=== PATIENT | male | born 1965 | race Hispanic/Latino ===

== ENCOUNTER 2024-03-14 16:37 | Observation (INO) | payer SELFPAY ==
[2024-03-14] MEDS ORDERED: FAMOTIDINE 20 MG/2 ML VIAL IV ONE (17:28)
[2024-03-14] MEDS ORDERED: ASPIRIN 81 MG CHEWABLE TABLET ONE (17:28)
[2024-03-14] MEDS ORDERED: NA CHLORIDE 0.9% 500 ML ONE (17:28)
--- NOTE | 2024-03-14 17:51 | RAD REPORT ---
EXAM DESCRIPTION: RAD - Chest Single View - 03/14/2024 5:41 pm CLINICAL HISTORY: CHEST PAIN COMPARISON: No comparisons FINDINGS: Lines: None. Lungs: No evidence of edema or pneumonia. Pleural: No significant pleural effusions or pneumothorax. Cardiac: The heart size is within normal limits. Mediastinum: Within normal limits. Bones: No acute fractures. Other: None IMPRESSION: No acute cardiopulmonary disease.
[2024-03-14 18:02] LABS: PT Prothrombin Time 11.1 SECONDS (9.4-12.5); Protime INR 1.01
[2024-03-14 18:06] LABS: Absolute Eosinophils 0.1 K/uL (0-0.5); Absolute Lymphocytes (CBC) 1.7 K/uL (0.7-4.9); Absolute Monocytes 0.6 K/uL (0.1-1.3); Absolute Neutrophil 5.4 K/uL (1.8-8.0); Basophils % 0.4 % (0-1.3); Eosinophils % 1.1 % (0-4.4); Hematocrit 38.5 % (39.6-49.0); Hemoglobin 12.8 g/dL (13.6-17.9); Lymphocytes % 21.8 % (15.3-44.8); MCH 29.6 pg (27.0-35.0); MCHC 33.2 g/dL (32.0-36.0); MCV 89.3 fL (80-100); MPV 8.4 fL (7.6-11.3); Monocytes % 7.5 % (3.3-12.3); Neutrophils % 69.2 % (41.7-73.7); Platelets 259 thou/uL (152-406); RBC Red Blood Cell Count 4.31 M/uL (4.33-5.43)
--- NOTE | 2024-03-14 18:15 | EDPHYS ---
Physician Documentation [facility] Name: Antonio Valdes Age: 58 yrs Sex: Male : 1965 Arrival Date: 03/14/2024 Time: 16:37 Bed 13 Private MD: ED Physician Shaka Montejo HPI: 03/14 18:10 This 58 yrs old Male presents to ER via Ambulatory with complaints of Chest johnson Pain. 18:10 The patient or guardian reports chest pain that is located primarily in the anterior johnson chest wall, left. Onset: yesterday. The pain does not radiate. Associated signs and symptoms: Pertinent positives: shortness of breath. The chest pain is described as a pressure. Duration: The patient or guardian reports multiple episodes, that wax and wane. Modifying factors: The symptoms are alleviated by nothing. the symptoms are aggravated by activity, exertion, movement. Severity of pain: At its worst the pain was mild in the emergency department the pain is unchanged. The patient has experienced similar episodes in the past, a few times. Historical: - Allergies: 17:18 No Known Allergies; tl4 - Immunization history:: Adult Immunizations unknown. - Infectious Disease History:: Denies. - Social history:: Smoking status: Patient denies any tobacco usage or history of. ROS: 18:11 Constitutional: Negative for fever, chills, and weight loss, Eyes: Negative for injury, johnson pain, redness, and discharge, ENT: Negative for injury, pain, and discharge, Neck: Negative for injury, pain, and swelling, Respiratory: Negative for shortness of breath, cough, wheezing, and pleuritic chest pain, Abdomen/GI: Negative for abdominal pain, nausea, vomiting, diarrhea, and constipation, Back: Negative for injury and pain, : Negative for injury, bleeding, discharge, and swelling, MS/Extremity: Negative for injury and deformity, Skin: Negative for injury, rash, and discoloration, Neuro: Negative for headache, weakness, numbness, tingling, and seizure, Psych: Negative for depression, anxiety, suicide ideation, homicidal ideation, and hallucinations, Allergy/Immunology: Negative for hives, rash, and allergies, Endocrine: Negative for neck swelling, polydipsia, polyuria, polyphagia, and marked weight changes, Hematologic/Lymphatic: Negative for swollen nodes, abnormal bleeding, and unusual bruising, 18:11 Cardiovascular: Positive for chest pain, of the left clavicle and anterior aspect of left upper chest, Exam: 18:11 Constitutional: This is a well developed, well nourished patient who is awake, alert, johnson and in no acute distress. Head/Face: Normocephalic, atraumatic. Eyes: Pupils equal round and reactive to light, extra-ocular motions intact. Lids and lashes normal. Conjunctiva and sclera are non-icteric and not injected. Cornea within normal limits. Periorbital areas with no swelling, redness, or edema. ENT: Nares patent. No nasal discharge, no septal abnormalities noted. Tympanic membranes are normal and external auditory canals are clear. Oropharynx with no redness, swelling, or masses, exudates, or evidence of obstruction, uvula midline. Mucous membranes moist. Neck: Trachea midline, no thyromegaly or masses palpated, and no cervical lymphadenopathy. Supple, full range of motion without nuchal rigidity, or vertebral point tenderness. No Meningismus. Chest/axilla: Normal chest wall appearance and motion. Nontender with no deformity. No lesions are appreciated. Cardiovascular: Regular rate and rhythm with a normal S1 and S2. No gallops, murmurs, or rubs. Normal PMI, no JVD. No pulse deficits. Respiratory: Lungs have equal breath sounds bilaterally, clear to auscultation and percussion. No rales, rhonchi or wheezes noted. No increased work of breathing, no retractions or nasal flaring. Abdomen/GI: Soft, non-tender, with normal bowel sounds. No distension or tympany. No guarding or rebound. No evidence of tenderness throughout. Back: No spinal tenderness. No costovertebral tenderness. Full range of motion. Male : Normal genitalia with no discharge or lesions. Skin: Warm, dry with normal turgor. Normal color with no rashes, no lesions, and no evidence of cellulitis. MS/ Extremity: Pulses equal, no cyanosis. Neurovascular intact. Full, normal range of motion. Neuro: Awake and alert, GCS 15, oriented to person, place, time, and situation. Cranial nerves II-XII grossly intact. Motor strength 5/5 in all extremities. Sensory grossly intact. Cerebellar exam normal. Normal gait. Psych: Awake, alert, with orientation to person, place and time. Behavior, mood, and affect are within normal limits. 18:19 ECG was reviewed by the Attending Physician. [facility] Vital Signs: 17:16 BP 143 / 88; Pulse 63; Resp 18; Temp 97.9(TE); Pulse Ox 99% on R/A; Pain 8/10; tl4 18:04 BP 143 / 87; Pulse 62; Resp 20; Pulse Ox 100% on R/A; nj1 18:24 Weight 79.38 kg; Height 5 ft. 6 in. ; nj1 19:02 BP 142 / 80; Pulse 59; Resp 15; Pulse Ox 100% on R/A; Pain 3/10; nj1 21:16 BP 118 / 84; Pulse 58; Resp 14; Pulse Ox 98% on R/A; nj1 22:00 BP 123 / 68; Pulse 51; Resp 15; Pulse Ox 99% ; jj7 22:30 BP 126 / 61; Pulse 50; Resp 16; Temp 98.7; Pulse Ox 99% ; jj7 18:24 Body Mass Index 28.25 (79.38 kg, 167.64 cm) nj1 17:16 Pain Scale: Adult tl4 19:02 Pain Scale: Adult nj1 MDM: 16:53 Patient medically screened. johnson 18:12 Differential diagnosis: abnormal EKG, acute myocardial infarction, acute pericarditis, johnson anxiety, chest wall pain, costochondritis, hiatal hernia, myocarditis, pancreatitis, peptic ulcer disease, pericarditis, pleurisy, pulmonary embolus, stable angina, thoracic aortic disection, unstable angina. Differential Diagnosis flu. HEART Score: History: Slightly Suspicious (0), ECG: Non specific repolarization disturbance / LBTB / PM (1), Age: > 45 and < 65 years (1), Risk Factors: 1 or 2 risk factors (1), [Active Smoker] [+ Family HX] Troponin: < or = 1 x Normal Limit (0). The patient was given aspirin in the Emergency Department. Data reviewed: vital signs, nurses notes, lab test result(s), EKG, radiologic studies, plain films. Consideration of Admission/Observation Patient was admitted/placed on observation. Escalation of care including admission/observation considered. I considered the following discharge prescriptions or medication management in the emergency department Medications were administered in the Emergency Department. See MAR. Independent interpretation of the following test(s) in the Emergency Department EKG: See my EKG interpretation above. Test considered but Not performed: CT: ct chest ro pe. Historians other than the Patient: pt well informed , meena explained well. Care significantly affected by the following chronic conditions: smoker. Counseling: I had a detailed discussion with the patient and/or guardian regarding the historical points, exam findings, and any diagnostic results supporting the discharge/admit diagnosis, the presence of at least one elevated blood pressure reading (>120/80) during this emergency department visit, lab results, radiology results, the need for further work-up and treatment in the hospital. 03/14 16:54 Order name: Basic Metabolic Panel; Complete Time: 18:33 [facility] 03/14 16:54 Order name: CBC with Diff; Complete Time: 18:09 [facility] 03/14 16:54 Order name: LFT's; Complete Time: 18:33 [facility] 03/14 16:54 Order name: Magnesium; Complete Time: 18:33 [facility] 03/14 16:54 Order name: NT PRO-BNP; Complete Time: 18:33 [facility] 03/14 16:54 Order name: PT-INR; Complete Time: 18:09 [facility] 03/14 16:54 Order name: Troponin HS; Complete Time: 18:33 [facility] 03/14 16:54 Order name: Lipase; Complete Time: 18:33 [facility] 03/14 16:54 Order name: Urinalysis w/ reflexes; Complete Time: 18:20 [facility] 03/14 18:09 Order name: Lipid Profile [facility] 03/14 18:47 Order name: Urinalysis w/ reflexes [facility] 03/14 18:47 Order name: CBC with Automated Diff [facility] 03/14 18:47 Order name: CBC with Automated Diff [facility] 03/14 18:47 Order name: Comprehensive Metabolic Panel [facility] 03/14 18:47 Order name: Comprehensive Metabolic Panel [facility] 03/14 18:47 Order name: Troponin High Sensitivity [facility] 03/14 18:47 Order name: Troponin High Sensitivity [facility] 03/14 18:47 Order name: Troponin High Sensitivity [facility] 03/14 18:47 Order name: Troponin High Sensitivity [facility] 03/14 16:54 Order name: XRAY Chest (1 view); Complete Time: 18:09 [facility] 03/14 16:54 Order name: EKG; Complete Time: 16:55 [facility] 03/14 16:54 Order name: Cardiac monitoring; Complete Time: 17:16 [facility] 03/14 16:54 Order name: EKG - Nurse/Tech; Complete Time: 17:16 [facility] 03/14 16:54 Order name: IV Saline Lock; Complete Time: 17:31 [facility] 03/14 16:54 Order name: Labs collected and sent; Complete Time: 17:31 [facility] 03/14 16:54 Order name: O2 Per Protocol; Complete Time: 17:16 [facility] 03/14 16:54 Order name: O2 Sat Monitoring; Complete Time: 17:16 [facility] 03/14 17:49 Order name: Labs - recollect needed: recollect green top; Complete Time: 18:03 03/14 18:35 Order name: PO challenge: juice; Complete Time: 18:59 [facility] EC:19 Rate is 59 beats/min. Rhythm is regular. QRS [place] is Normal. [place] interval is normal. QRS johnson interval is normal. QT interval is normal. No Q waves. T waves are Normal. No ST changes noted. Clinical impression: Sinus bradycardia and No evidence of ischemia. Interpreted by me. Reviewed by me. Administered Medications: 17:30 Drug: Aspirin PO Chewable Tablet 162 mg PO once Route: PO; nj1 21:30 Follow up: Response: No adverse reaction nj1 17:32 Drug: NS 0.9% IV 500 ml IV at bolus once Route: IV; Rate: bolus; Site: right banner antecubital; 18:50 Follow up: IV Status: Completed infusion; IV Intake: 500ml nj1 17:32 Drug: Famotidine IVP 20 mg IVP once; dilute with 10 mL 0.9% NaCl; give over 2 minutes nj1 Route: IVP; Site: right antecubital; 21:30 Follow up: Response: No adverse reaction nj1 18:34 Not Given (Duplicate Order): ns 0.9% 1000 ml IV at 125 ml/hr continuous [facility] 18:50 Drug: Lisinopril PO 20 mg PO once Route: PO; nj1 21:30 Follow up: Response: No adverse reaction nj1 18:50 Drug: Atorvastatin PO 20 mg PO once Route: PO; nj1 21:30 Follow up: Response: No adverse reaction nj1 18:50 Drug: Ondansetron IVP 4 mg IVP once; over 2 minutes Route: IVP; Site: right antecubital;nj1 21:28 Follow up: Response: No adverse reaction nj1 18:50 Drug: Potassium PO Effervescent Tablet 50 mEq PO once; dissolve in 4 ounces of water or nj1 juice Route: PO; 21:27 Follow up: Response: No adverse reaction nj1 18:52 Drug: morphine IVP or IV 2 mg IVP once over 4 mins Route: IVP; Infused Over: 4 mins; nj1 Site: right antecubital; 19:30 Follow up: Response: No adverse reaction; Pain is decreased nj1 18:55 Drug: Enoxaparin Sub-Q 1 mg/kg Sub-Q once Route: Sub-Q; Site: left upper abdomen; nj1 21:29 Follow up: Response: No adverse reaction nj1 18:55 Drug: NS 0.9% with KCl IV 20 mEq/L 1000 ml IV at 125 ml/hr continuous Route: IV; Rate: nj1 125 ml/hr; Site: right antecubital; 21:28 Not Given (Duplicate Order): morphineor iv 2 mg IVP once over 4 mins nj1 Disposition Summary: 03/14/24 18:15 Hospitalization Ordered Notes: Hospitalization Status: Observation johnson Provider: Rene Lee cha Location: Telemetry/MedSurg (observation) johnson Condition: Fair johnson Problem: new johnson Symptoms: have improved johnson Bed/Room Type: Standard johnson Room Assignment: 221(03/14/24 21:05) vk Diagnosis - Chest pain, unspecified johnson - Dyspnea johnson - Essential (primary) hypertension johnson - Tobacco abuse counseling johnson - Tobacco use johnson - Hypokalemia johnson Forms: - Medication Reconciliation Form johnson - SBAR form johnson - Leadership Thank You Letter johnson Signatures: Dispatcher [employer] EDMS Jailene Arana Corey, MD MD cha Jaco, Norma RN RN nj1 Gutierrez Arreola RN RN tl4 Renea Garcia Corrections: (The following items were deleted from the chart) 16:55 16:55 BASIC METABOLIC PANEL+C.LAB.BRZ ordered. EDMS EDMS 16:55 16:55 CBC+H.LAB.BRZ ordered. EDMS EDMS 16:55 16:55 HEPATIC FUNCTION+C.LAB.BRZ ordered. EDMS EDMS 16:55 16:55 MAGNESIUM+C.LAB.BRZ ordered. EDMS EDMS 16:55 16:55 PROBNP+C.LAB.BRZ ordered. EDMS EDMS 16:55 16:55 PROTIME (+INR)+COAG.LAB.BRZ ordered. EDMS EDMS 16:55 16:55 Troponin High Sensitivity+C.LAB.BRZ ordered. EDMS EDMS 16:55 16:55 LIPASE+C.LAB.BRZ ordered. EDMS EDMS 16:55 16:55 Urinalysis+U.LAB.BRZ ordered. EDMS EDMS 18:10 18:10 LIPID PROFILE+C.LAB.BRZ ordered. EDMS EDMS 21:05 18:15 johnson vk
--- NOTE | 2024-03-14 18:15 | ER ---
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 Pt states pain decreases with rest. Pt denies SOB, N/V, diaphoresis. Pt denies any history of similar episodes. Coronavirus screen: At this time, the client does not indicate any symptoms associated with coronavirus-19. Ebola Screen: No symptoms or risks identified at this time. Initial Sepsis Screen: Does the patient meet any 2 criteria? No. Patient's initial sepsis screen is negative. Does the patient have a suspected source of infection? No. Patient's initial sepsis screen is negative. Risk Assessment: Do you want to hurt yourself or someone else? Patient reports no desire to harm self or others. Onset of symptoms was March 13, 2024. 17:16 Method Of Arrival: Ambulatory tl4 17:16 Acuity: ABRAHAM 2 tl4 Triage Assessment: 17:19 General: Appears in no apparent distress. Behavior is cooperative. Pain: Complains of tl4 pain in chest. EENT: No signs and/or symptoms were reported regarding the EENT system. Neuro: Level of Consciousness is awake, alert, obeys commands, Oriented to person, place, time, situation, Moves all extremities. Full function Gait is steady, Speech is normal. Cardiovascular: Reports chest pain, fatigue, Denies diaphoresis, nausea, shortness of breath, Capillary refill < 3 seconds Patient's skin is warm and dry. Respiratory: Airway is patent Respiratory effort is even, unlabored, Respiratory pattern is regular, symmetrical. GI: No signs and/or symptoms were reported involving the gastrointestinal system. : No signs and/or symptoms were reported regarding the genitourinary system. Derm: No signs and/or symptoms reported regarding the dermatologic system. Musculoskeletal: No signs and/or symptoms reported regarding the musculoskeletal system. Historical: - Allergies: 17:18 No Known Allergies; tl4 - Immunization history:: Adult Immunizations unknown. - Infectious Disease History:: Denies. - Social history:: Smoking status: Patient denies any tobacco usage or history of. Screenin:51 [facility] ED Fall Risk Assessment (Adult) History of falling in the last 3 months, nj1 including since admission No falls in past 3 months (0 pts) Confusion or Disorientation No (0 pts) Intoxicated or Sedated No (0 pts) Impaired Gait No (0 pts) Mobility Assist Device Used No (0 pt) Altered Elimination No (0 pt) Score/Fall Risk Level 0 - 2 = Low Risk Oriented to surroundings, Maintained a safe environment, Hourly rounding (assess needs \T\ fall precautionary measures) done. Abuse screen: Denies threats or abuse. Denies injuries from another. Nutritional screening: No deficits noted. Tuberculosis screening: No symptoms or risk factors identified. Assessment: 17:25 General: Appears in no apparent distress. comfortable, Behavior is calm, cooperative, nj1 appropriate for age. 17:25 Pain: Complains of pain in chest Pain does not radiate. Pain currently is 3 out of 10 nj1 on a pain scale. at worst was 5 out of 10 on a pain scale. Pain began 1 day ago. Neuro: Level of Consciousness is awake, alert, obeys commands, Oriented to person, place, time, situation. Cardiovascular: Patient's skin is warm and dry. Respiratory: Airway is patent Respiratory effort is even, unlabored. 19:02 Reassessment: Patient appears in no apparent distress at this time. Patient and/or nj1 family updated on plan of care and expected duration. Pain level reassessed. Patient is alert, oriented x 3, equal unlabored respirations, skin warm/dry/pink. 21:17 Reassessment: Patient appears in no apparent distress at this time. Patient and/or nj1 family updated on plan of care and expected duration. Pain level reassessed. Patient is alert, oriented x 3, equal unlabored respirations, skin warm/dry/pink. 22:10 Reassessment: RECEIVED PT REPORT FROM NEENA BLACKBURN. STATES PT IS ADMITTED AND WILL BE GOING jj7 TO THE UNIT IN 5 MINUTES. INFORMED THEY ARE HAVING ROOMING ISSUES AND ONCE ROOM ISSUE IS RESOLVED PT WILL GO TO THE UNIT. General: Appears in no apparent distress. comfortable, Behavior is calm, cooperative, appropriate for age. Vital Signs: 17:16 BP 143 / 88; Pulse 63; Resp 18; Temp 97.9(TE); Pulse Ox 99% on R/A; Pain 8/10; tl4 18:04 BP 143 / 87; Pulse 62; Resp 20; Pulse Ox 100% on R/A; nj1 18:24 Weight 79.38 kg; Height 5 ft. 6 in. ; nj1 19:02 BP 142 / 80; Pulse 59; Resp 15; Pulse Ox 100% on R/A; Pain 3/10; nj1 21:16 BP 118 / 84; Pulse 58; Resp 14; Pulse Ox 98% on R/A; nj1 22:00 BP 123 / 68; Pulse 51; Resp 15; Pulse Ox 99% ; jj7 22:30 BP 126 / 61; Pulse 50; Resp 16; Temp 98.7; Pulse Ox 99% ; jj7 18:24 Body Mass Index 28.25 (79.38 kg, 167.64 cm) nj1 17:16 Pain Scale: Adult tl4 19:02 Pain Scale: Adult ia1 ED Course: 16:50 Patient arrived in ED. mg5 16:53 Shaka Montejo MD is Attending Physician. johnson 17:11 Neena Phillips, RN is Primary Nurse. nj1 17:16 EKG done, by ED staff, reviewed by Shaka Montejo MD. tl4 17:18 Triage completed. tl4 17:20 Arm band placed on left wrist. tl4 17:25 Inserted saline lock: 20 gauge in right antecubital area, using aseptic technique. kj2 Blood collected. 17:43 XRAY Chest (1 view) In Process Unspecified. EDMS 17:51 Patient has correct armband on for positive identification. Bed in low position. Call nj1 light in reach. Provided Education on: call light, fall precautions. Client placed on continuous cardiac and pulse oximetry monitoring. NIBP monitoring applied. special education resource room teacher on. 18:03 Urinalysis w/ reflexes Sent. tl4 18:03 Basic Metabolic Panel Sent. tl4 18:03 LFT's Sent. tl4 18:03 Magnesium Sent. tl4 18:03 NT PRO-BNP Sent. tl4 18:03 Troponin HS Sent. tl4 18:03 Lab(s) recollected, by me, sent to lab. Urine collected: clean catch specimen, philippe tl4 colored. 18:14 Rene Lee MD is Hospitalizing Provider. [facility] 21:31 No provider procedures requiring assistance completed. Patient admitted, IV remains in ia1 place. Administered Medications: 17:30 Drug: Aspirin PO Chewable Tablet 162 mg PO once Route: PO; nj1 21:30 Follow up: Response: No adverse reaction nj1 17:32 Drug: NS 0.9% IV 500 ml IV at bolus once Route: IV; Rate: bolus; Site: right nj1 antecubital; 18:50 Follow up: IV Status: Completed infusion; IV Intake: 500ml nj1 17:32 Drug: Famotidine IVP 20 mg IVP once; dilute with 10 mL 0.9% NaCl; give over 2 minutes nj1 Route: IVP; Site: right antecubital; 21:30 Follow up: Response: No adverse reaction nj1 18:34 Not Given (Duplicate Order): ns 0.9% 1000 ml IV at 125 ml/hr continuous [facility] 18:50 Drug: Lisinopril PO 20 mg PO once Route: PO; nj1 21:30 Follow up: Response: No adverse reaction nj1 18:50 Drug: Atorvastatin PO 20 mg PO once Route: PO; nj1 21:30 Follow up: Response: No adverse reaction nj1 18:50 Drug: Ondansetron IVP 4 mg IVP once; over 2 minutes Route: IVP; Site: right antecubital;nj1 21:28 Follow up: Response: No adverse reaction nj1 18:50 Drug: Potassium PO Effervescent Tablet 50 mEq PO once; dissolve in 4 ounces of water or nj1 juice Route: PO; 21:27 Follow up: Response: No adverse reaction nj1 18:52 Drug: morphine IVP or IV 2 mg IVP once over 4 mins Route: IVP; Infused Over: 4 mins; [facility] Site: right antecubital; 19:30 Follow up: Response: No adverse reaction; Pain is decreased nj1 18:55 Drug: Enoxaparin Sub-Q 1 mg/kg Sub-Q once Route: Sub-Q; Site: left upper abdomen; nj1 21:29 Follow up: Response: No adverse reaction nj1 18:55 Drug: NS 0.9% with KCl IV 20 mEq/L 1000 ml IV at 125 ml/hr continuous Route: IV; Rate: nj1 125 ml/hr; Site: right antecubital; 21:28 Not Given (Duplicate Order): morphineor iv 2 mg IVP once over 4 mins nj1 Medication: 21:32 VIS not applicable for this client. nj1 Intake: 18:50 IV: 500ml; Total: 500ml. nj1 Outcome: 18:15 Decision to Hospitalize by Provider. johnson 21:31 Admitted to Med/surg accompanied by tech, via wheelchair, room 221, nj 21:31 Condition: stable 21:31 Instructed on the need for admit, 22:45 Patient left the ED. jj7 Signatures: Dispatcher [employer] EDMS Shaka Montejo MD MD cha Johnson, Juwairiyah, RN RN jj7 Neena Phillips, RN RN nj1 Suzi Maurice mg5 Gutierrez Arreola RN RN tl4 Franca Henry, RN RN kj2
[2024-03-14 18:18] LABS: Sqamous Epithelial None Seen /HPF (None Seen); Urine Bacteria <20 /HPF (<20); Urine Bilirubin NEGATIVE (Negative); Urine Blood Trace (Negative); Urine Clarity Clear (Clear); Urine Color Yellow (Yellow); Urine Culture Reflex Order NOT NEEDED; Urine Glucose NEGATIVE (Negative); Urine Ketones 1+ (Negative); Urine Microscopic Reflex YN ORDER UMIC; Urine Mucus Slight /HPF (None Seen); Urine Nitrite NEGATIVE (Negative); Urine Protein TRACE (Negative); Urine Urobilinogen Normal (Normal); Urine WBC <5 /HPF (<5); Urine pH 5.5 (5.0-7.0)
[2024-03-14 18:30] LABS: Albumin 2.7 g/dL (3.4-5.0); Albumin/Globulin Ratio 1.1 (1.1-1.8); Anion Gap 6.9 mEq/L (5.0-15.0); Bilirubin Direct 0.2 mg/dL (0-0.2); Bilirubin Indirect, Calculated 0.5 mg/dL (0.2-0.8); Bilirubin Total 0.7 mg/dL (0.2-1.0); Globulin 2.5 g/dL (2.3-3.5); Magnesium 1.8 mg/dL (1.6-2.4); Potassium 2.9 mEq/L (3.5-5.1); Protein, Total 5.2 g/dL (6.4-8.2); Troponin High Sensitivity 4.8 pg/mL (<58.9)
[2024-03-14] MEDS ORDERED: lisinopriL 20 MG TAB ONE (18:40)
[2024-03-14] MEDS ORDERED: ATORVASTATIN 20 MG TAB ONE (18:40)
[2024-03-14] MEDS ORDERED: ENOXAPARIN 80 MG/0.8 ML SQ ONE (18:40)
[2024-03-14] MEDS ORDERED: ONDANSETRON 4 MG/2 ML VIAL ONE (18:40)
[2024-03-14] MEDS ORDERED: POTASSIUM 25 MEQ EFFERV TAB ONE (18:41)
[2024-03-14] MEDS ORDERED: MORPHINE 4 MG/ML SYR ONE (18:41)
[2024-03-14] MEDS ORDERED: NS KCL 20MEQ 1,000 ML IV ONE (18:42)
--- NOTE | 2024-03-14 18:42 | P.HP ---
Certification for Inpatient Patient admitted to: Observation With expected LOS: <2 Midnights Practitioner: I am a practitioner with admitting privileges, knowledge of patient current condition, hospital course, and medical plan of care. Services: Services provided to patient in accordance with Admission requirements found in Title 42 Section 412.3 of the Code of Federal Regulations Patient History Date of Service: 03/15/24 Reason for admission: CP History of Present Illness: 58 yrs old Male with no significant past medical history came to ER with chest pain. Located in the anterior chest wall with no radiation associated with mild shortness of breath. Denies any diaphoresis. Said pressure-like feeling. Intermittent, symptoms are aggravated with activity and exertion and movements. Denies any fever or chills No sick contacts Denies any cough. Patient was assessed in the ER and is admitted for further management of chest pain to rule out ACS Allergies No Known Allergies Allergy (Unverified 03/14/24 21:30) Home Medications: NK [No Home Meds] 03/14/24 - Past Medical/Surgical History Past Medical History: Reviewed- Non-Contributory Past Surgical History: Reviewed- Non-Contributory - Family History Family History: Reviewed- Non-Contributory - Social History Smoking Status: Current some day smoker Review of Systems 10-point ROS is otherwise unremarkable Physical Examination - Vital Signs Temperature: 98.2 F Blood Pressure: 138/68 Pulse: 82 Respirations: 18 Pulse Ox (%): 93 - Physical Exam General: Alert, In no apparent distress, Oriented x3 HEENT: Atraumatic, Normocephalic Neck: Supple, 2+ carotid pulse no bruit Respiratory: Clear to auscultation bilaterally, Normal air movement Cardiovascular: Normal pulses, Regular rate/rhythm, No murmurs Capillary refill: <2 Seconds Gastrointestinal: Soft and benign, W/out hepatosplenomegaly Musculoskeletal: No clubbing, No swelling Integumentary: No rashes, No breakdown Neurological: Normal speech, Normal strength at 5/5 x4 extr, Sensation intact, Cranial nerves 3-12 intact, Normal reflexes 2+ Lymphatics: No axilla or inguinal lymphadenopathy - Studies Laboratory Data (last 24 hrs) 03/14/24 03/14/24 03/14/24 18:00 17:25 17:25 WBC 7.90 Hgb 12.8 L Hct 38.5 L Plt Count 259 PT 11.1 INR 1.01 Sodium 144 Potassium 2.9 L BUN 19 H Creatinine 0.86 Glucose 73 L Magnesium 1.8 Total Bilirubin 0.7 AST 15 ALT 22 Alkaline Phosphatase 58 Lipase 25 Assessment and Plan - Problems (Diagnosis) (1) Unstable angina Current Visit: Yes Status: Acute Plan: Unstable angina Will trend cardiac enzymes Will monitor telemetry Started on aspirin and statin EKG did not show any acute changes suggestive of ischemia Will get an echocardiogram Cardiology consult Hypocalcemia Hypokalemia Will replace electrolytes Monitor closely under telemetry Smoking Advise smoking cessation GI/DVT prophylaxis Advanced directive full code Discharge Plan: Home Plan to discharge in: 48 Hours - Advance Directives Does patient have a Living Will: No Does patient have a Durable POA for Healthcare: No - Code Status/Comfort Care Code Status: Full Code Time Spent Managing Pts Care (In Minutes): 48
[2024-03-14] MEDS ORDERED: ONDANSETRON 4 MG/2 ML VIAL IV PRN (18:43)
[2024-03-14] MEDS ORDERED: ACETAMINOPHEN 325 MG TABLET PO PRN (18:43)
[2024-03-14] MEDS: CALCIUM GLUCONATE 1 GM IVPB 1 GM/50 ML BAG IV ONE (23:16)
[2024-03-14] MEDS: POTASSIUM CL SA 10 MEQ TAB PO ONE (23:16)
[2024-03-15 00:26] VITALS: O2SAT 98; BMI 28.3
[2024-03-15 02:29] LABS: Absolute Basophils 0.1 K/uL (0-0.5); Absolute Eosinophils 0.2 K/uL (0-0.5); Absolute Lymphocytes (CBC) 2.2 K/uL (0.7-4.9); Absolute Monocytes 0.5 K/uL (0.1-1.3); Absolute Neutrophil 2.7 K/uL (1.8-8.0); Eosinophils % 3.3 % (0-4.4); Hematocrit 37.1 % (39.6-49.0); Hemoglobin 12.4 g/dL (13.6-17.9); Lymphocytes % 39.9 % (15.3-44.8); MCHC 33.6 g/dL (32.0-36.0); MCV 89.4 fL (80-100); MPV 8.3 fL (7.6-11.3); Monocytes % 8.5 % (3.3-12.3); Neutrophils % 47.3 % (41.7-73.7); Nucleated Red Blood Cells % 0.1 % (0-0); Platelets 218 thou/uL (152-406); RBC Red Blood Cell Count 4.15 M/uL (4.33-5.43); Red Cell Distribution Width 14.4 % (12.1-15.2)
[2024-03-15 02:44] LABS: Anion Gap 3.8 mEq/L (5.0-15.0); Potassium 3.8 mEq/L (3.5-5.1)
[2024-03-15 04:51] LABS: Magnesium 2.3 mg/dL (1.6-2.4)
--- NOTE | 2024-03-15 07:03 | P.PN ---
Date of Service: 03/15/24 Subjective admitted for chest pain, Review of Systems 10-point ROS is otherwise unremarkable Physical Examination - Vital Signs reviewed - Physical Exam General: Alert, In no apparent distress, Oriented x3 HEENT: Atraumatic, Normocephalic Neck: Supple, 2+ carotid pulse no bruit Respiratory: Clear to auscultation bilaterally, Normal air movement Cardiovascular: Normal pulses, Regular rate/rhythm, No murmurs Capillary refill: <2 Seconds Gastrointestinal: Soft and benign, W/out hepatosplenomegaly Musculoskeletal: No clubbing, No swelling Integumentary: No rashes, No breakdown Neurological: Normal speech, Normal strength at 5/5 x4 extr, Sensation intact, Cranial nerves 3-12 intact, Normal reflexes 2+ Lymphatics: No axilla or inguinal lymphadenopathy Assessment and Plan - Problems (Diagnosis) (1) Unstable angina Current Visit: Yes Status: Acute Plan: Unstable angina Will trend cardiac enzymes Will monitor telemetry Started on aspirin and statin EKG did not show any acute changes suggestive of ischemia Will get an echocardiogram Cardiology consult Hypocalcemia Hypokalemia Will replace electrolytes Monitor closely under telemetry Smoking Advise smoking cessation GI/DVT prophylaxis Advanced directive full code Discharge Plan: Home Plan to discharge in: 48 Hours - Advance Directives Does patient have a Living Will: No Does patient have a Durable POA for Healthcare: No - Code Status/Comfort Care Code Status: Full Code Time Spent Managing Pts Care (In Minutes): 48
[2024-03-15] MEDS: POTASSIUM CL SA 10 MEQ TAB PO ONE (08:31)
[2024-03-15] MEDS: ENOXAPARIN 40 MG/0.4 ML SQ SCH (08:35)
[2024-03-15] MEDS ORDERED: REGADENOSON 0.4 MG/5 ML SYR IV ONE (10:34)
--- NOTE | 2024-03-15 10:34 | P.CNS ---
Date of Consult: 03/15/24 Chief Complaint: CP History of Present Illness: Patient with no significant PMH presented with chest pain. left sided that has been going for the last 3 days, no radiation, pressure in nature, not related to exertion, no other cardiac symptoms. 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 moist/pink, EOMI, Sclerae nonicteric Neck: Supple, 2+ carotid pulse no bruit, No LAD, Without JVD or thyroid abnormality Respiratory: Clear to auscultation bilaterally, Normal air movement Cardiovascular: Regular rate/rhythm, Normal S1 S2 Gastrointestinal: Normal bowel sounds, No tenderness Musculoskeletal: No tenderness Integumentary: No rashes Neurological: Normal gait, Normal speech, Normal tone, Normal affect Lymphatics: No axilla or inguinal lymphadenopathy Laboratory Data (last 24 hrs) 03/14/24 03/14/24 03/14/24 18:00 18:00 17:25 WBC Hgb Hct Plt Count PT 11.1 INR 1.01 Sodium 144 Potassium 2.9 L BUN 19 H Creatinine 0.86 Glucose 73 L Magnesium 1.8 Total Bilirubin 0.7 AST 15 ALT 22 Alkaline Phosphatase 58 Triglycerides 73 Cholesterol 100 HDL Cholesterol 35 L Cholesterol/HDL Ratio 2.86 Lipase 25 03/14/24 17:25 WBC 7.90 Hgb 12.8 L Hct 38.5 L Plt Count 259 PT INR Sodium Potassium BUN Creatinine Glucose Magnesium Total Bilirubin AST ALT Alkaline Phosphatase Triglycerides Cholesterol HDL Cholesterol Cholesterol/HDL Ratio Lipase - Problems (1) Unstable angina Current Visit: Yes Status: Acute Plan: Plan is for nuclear stress test. get echo. continue ASA 81 mg daily (2) Bradycardia Current Visit: Yes Status: Acute Plan: Sinus carlin on tele, no pauses, continue to monitor. (3) Hypokalemia Current Visit: Yes Status: Acute Plan: correct and monitor.
--- NOTE | 2024-03-15 11:28 | RAD REPORT ---
EXAM DESCRIPTION: NM - Rest Stress Cardiac Imaging - 03/15/2024 11:17 am CLINICAL HISTORY: chest pain Chest pain. COMPARISON: <Comparisons> TECHNIQUE: The patient was administered approximately 10mCi of Tc 99m Sestamibi prior to resting SPE CT imaging of the heart. The patient was then administered approximately 30 mCi of Tc 99m Sestamibi f ollowing exercise or pharmacologic stress. Multiplanar SPECT images were reviewed. FINDINGS: No stress induced ischemic defect is seen to suggest stress induced ischemia. No fixed def ect is seen to suggest hibernating myocardium or scarred myocardium. The end diastolic volume is 126 ml, the end systolic volume is 60 ml, and the ejection fraction is 52 %. IMPRESSION: No stress induced ischemia.
--- NOTE | 2024-03-15 12:26 | ECHO ---
HEIGHT: 5 ft 4 in WEIGHT: 165 lb 0 oz DATE OF STUDY: 03/15/[address]: Mayur Lee DO 2-DIMENSIONAL: YES M.MODE: YES DOPPLER: YES COLOR FLOW: YES TDS: PORTABLE: YES DEFINITY: BUBBLE STUDY: DIAGNOSIS: CHEST PAIN CARDIAC HISTORY: CATHERIZATION: NO SURGERY: NO PROSTHETIC VALVE: NO PACEMAKER: NO MEASUREMENTS (cm) DIASTOLIC (NORMALS) SYSTOLIC (NORMALS) IVSd 0.9 (0.6-1.2) LA Diam 2.7 (1.9-4.0) LVEF 60-65% LVIDd 4.9 (3.5-5.7) LVIDs 3.1 (2.0-3.5) %FS 35% LVPWd 1.0 (0.6-1.2) Ao Diam 31 (2.0-3.7) 2 DIMENSIONAL ASSESSMENT: RIGHT ATRIUM: NORMAL LEFT ATRIUM: NORMAL RIGHT VENTRICLE: NORMAL LEFT VENTRICLE: NORMAL TRICUSPID VALVE: MILD TRICUSPID REGURGITATION MITRAL VALVE: MILD MITRAL REGURGITATION PULMONIC VALVE: NORMAL AORTIC VALVE: MILD AORTIC REGURGITATION PERICARDIAL EFFUSION: NONE AORTIC ROOT: NORMAL LEFT VENTRICULAR WALL MOTION: NORMAL DOPPLER/COLOR FLOW: NORMAL COMMENTS: 1. NORMAL LEFT VENTRICULAR SYSTOLIC FUNCTION, EJECTION FRACTION 60-65%, NORMAL WALL MOTION 2. NORMAL DIASTOLIC FUNCTION 3. MILD MITRAL REGURGITATION, MILD TRICUSPID REGURGITATION, MILD AORTIC REGURGITATION TECHNOLOGIST: DAIJA GAMING
--- NOTE | 2024-03-15 12:39 | TREADPHA ---
DX: CHEST PAIN Date of Study: 03/15/2024 Ht: 5' 4 " Wt: 165 lb 0 oz Consulting Physician: ROCÍO MEDICATIONS: TYLENOL, LOVENOX, ZOFRAN, KLOR-CON HISTORY: 58 YEAR OLD MALE WITH COMPLAINTS OF CHEST PAIN. HISTORY OF HYPERTENSION, HYPERLIPIDEMIA. PATIENT DENIES ALLERGIES. PHYSICIAL EXAMINATION: RESTING B.P.: 119/69 RESTING H.R.: 48 RESTING EKG: SINUS BRADYCARDIA PROTOCOL: PHARMACOLOGIC EXERCISE TIME: 3:30 B.P. AT PEAK STRESS: 112/54 IMPRESSION: LEXISCAN INJECTED. CARDIOLITE INJECTED - SEE NUCLEAR MEDICINE REPORT. PREMATURE VENTRICULAR COMPLEXES OCCASIONALLY. NO SUPRAVENTRICULAR TACHYCARDIA, VENTRICULAR TACHYCARDIA, PREMATURE ATRIAL COMPLEXES NOTED. PATIENT STATES PAIN TO RIGHT CHEST AT A ONE BEFORE THROUGHOUT AND AFTER PROCEDURE.
--- NOTE | 2024-03-15 12:42 | P.DS ---
Admission Date: 03/14/24 Discharge Date: 03/15/24 Disposition: ROUTINE DISCHARGE Discharge Condition: GOOD Reason for Admission: CP Brief History of Present Illness: 58 yrs old Male with no significant past medical history came to ER with chest pain. Located in the anterior chest wall with no radiation associated with mild shortness of breath. Denies any diaphoresis. Said pressure-like feeling. Intermittent, symptoms are aggravated with activity and exertion and movements. Denies any fever or chills, No sick contacts, Denies any cough. - Physical Exam General: Alert, In no apparent distress, Oriented x3 HEENT: Atraumatic, Normocephalic Neck: Supple, 2+ carotid pulse no bruit Respiratory: Clear to auscultation bilaterally, Normal air movement Cardiovascular: Normal pulses, Regular rate/rhythm, No murmurs Capillary refill: <2 Seconds Gastrointestinal: Soft and benign, W/out hepatosplenomegaly Musculoskeletal: No clubbing, No swelling Integumentary: No rashes, No breakdown Neurological: Normal speech, Normal strength at 5/5 x4 extr, Lymphatics: No axilla or inguinal lymphadenopathy Hospital Course: 58 year-old patient presented with chest pain. Was noted to have hypokalemia, atypical chest pain. Condition improved with as needed analgesics, electrolyte replacement, he was evaluated by cardiology, stress test was negative for acute ischemia, echocardiogram completed. Patient tolerating diet, stable for discharge to home with follow-up appointment with primary care physician. Follow-up with cardiology after discharge, Instructions, test results explained to patient in yakut with eyelet riveter prior to discharge. Patient verbalized understanding, all questions were answered. Echocardiogram COMMENTS: 1. NORMAL LEFT VENTRICULAR SYSTOLIC FUNCTION, EJECTION FRACTION 60-65%, NORMAL WALL MOTION 2. NORMAL DIASTOLIC FUNCTION 3. MILD MITRAL REGURGITATION, MILD TRICUSPID REGURGITATION, MILD AORTIC REGURGITATION PROBLEM: Atypical chest pain evaluated by cardiology, stress test no acute ischemia [id number] with cardiology, aspirin 81 mg after discharge Serial cardiac enzymes normal. 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 Brady at [phone] if any questions regarding hospital stay -Please call nursing station at [phone] if any nursing or medication questions -Return to the emergency room if symptoms worsen Diet: ADA, low sodium Activity: Fall precautions Vital Signs/Physical Exam: Temp Pulse Resp BP Pulse Ox 98.0 F 42 L 14 96/57 L 98 03/15/24 08:00 03/15/24 08:00 03/15/24 08:00 03/15/24 08:00 03/15/24 08:00 Laboratory Data at Discharge: WBC 5.60 thou/uL (4.3-10.9) 03/15/24 02:04 Hgb 12.4 g/dL (13.6-17.9) L 03/15/24 02:04 Hct 37.1 % (39.6-49.0) L 03/15/24 02:04 Plt Count 218 thou/uL (152-406) 03/15/24 02:04 PT 11.1 SECONDS (9.4-12.5) 03/14/24 17:25 INR 1.01 03/14/24 17:25 Sodium 140 mEq/L (136-145) 03/15/24 02:04 Potassium 3.8 mEq/L (3.5-5.1) D 03/15/24 02:04 BUN 19 mg/dL (7-18) H 03/15/24 02:04 Creatinine 0.97 mg/dL (0.70-1.30) 03/15/24 02:04 Glucose 114 mg/dL (74-106) H 03/15/24 02:04 Magnesium 2.3 mg/dL (1.6-2.4) 03/15/24 02:04 Total Bilirubin 1.0 mg/dL (0.2-1.0) 03/15/24 02:04 AST 18 U/L (15-37) 03/15/24 02:04 ALT 24 U/L (16-61) 03/15/24 02:04 Alkaline Phosphatase 70 U/L (45-117) D 03/15/24 02:04 Triglycerides 73 mg/dL (<150) 03/14/24 18:00 Cholesterol 100 mg/dL (<200) 03/14/24 18:00 HDL Cholesterol 35 mg/dL (40-60) L 03/14/24 18:00 Cholesterol/HDL Ratio 2.86 03/14/24 18:00 Lipase 25 U/L (13-75) 03/14/24 18:00 Home Medications: Aspirin [Aspirin EC 81 MG] 81 mg PO DAILY 30 Days #30 tab 03/15/24 New Medications: Aspirin [Aspirin EC 81 MG] 81 mg PO DAILY 30 Days #30 tab Physician Discharge Instructions: Primary Care and Medication Assistance [facility] Locations: [place], [facility], [place], [place], [place], [place], [place], [place] Payments: Offers free or low-cost care based on individual circumstances Appointments: [email or web address] call for appointment at any location [address] [address] Check the website for clinic dates [email or web address]://[facility] hospitalRancard Solutions Limited/ [facility] link for financial assistance to see PCP or specialist: https://www.[facility]/billing-insurance/financial-assistance https://www.[employer]/ - (compares pharmacy prices and provides coupons) https://costTwillion/ (discounts for out of pocket cost on routine medications by mail) https://www.needymeds.org/newuser (patient assistance programs, coupons, discount card) [facility] Medication Assistance Program [place]: [place]: [facility] (medication assistance) Apply for Disability/Social Security Income (SSI) online: https://www.ssa.gov/apply or through local social security office Apply for Medicaid for elderly or disabled in [place] online: https://www.hhs.[place].gov/services/health/medicaid-chip/medicaid-chip-programs-s ervices/vynfgupn-fgugdgfe-iyhqwx-disabilities/medicaid-elderly-people-disabiliti es or at a local Medicaid office: Health & Human Service Commission [address] [place] [address]/: [phone]); additional website for [place] Medicaid assistance: https://www.[employer].[facility]/members/medicaid/ skg-jg-wfmeha.html Diet: AHA Activity: Fall precautions Followup: Jono Colindres MD [ACTIVE - CAN ADMIT] - NONE,NONE [Primary Care Provider] - Time spent managing pt's care (in minutes): 50
[2024-03-15 13:02] VITALS: BP 114/64; TEMP 97.6
--- NOTE | 2024-03-15 14:08 | EKG ---
Test Date: 2024-03-14 Test Time: 17:09:55 Biometric Screener: TL MEASUREMENT RESULTS: Intervals: Rate: 59 OH: 170 QRSD: 90 QT: 384 QTc: 380 [place]: P: 38 OH: 170 QRS: 25 T: 12 INTERPRETIVE STATEMENTS: Sinus bradycardia Cannot rule out Anterior infarct, age undetermined Abnormal ECG No previous ECG available for comparison Electronically Signed On 03-15-24 14:06:33 CDT by Frederick Carbajal
== END 2024-03-15 14:41 | disposition home or self-care (01) ==
LOC: ER 16:37 → ERHOLD 18:43 → 2ND 22:14
PROVIDERS: ADMIT Family Medicine; ATTEND Hospitalist
DX: I20.0 Unstable angina (principal); R00.1 Bradycardia, unspecified; I35.1 Nonrheumatic aortic (valve) insufficiency; I34.0 Nonrheumatic mitral (valve) insufficiency; I07.1 Rheumatic tricuspid insufficiency; E83.51 Hypocalcemia; E87.6 Hypokalemia; F17.210 Nicotine dependence, cigarettes, uncomplicated; Z71.6 Tobacco abuse counseling; Z79.82 Long term (current) use of aspirin
CPT/HCPCS: 36415; 71045; 78452; 80048; 80053; 80061; 80076; 81001; 83690; 83735; 83880; 84484; 85025; 85610; 93005; 93017; 93306; 96361; 96372; 96374; 96375; 99285; A9500; G0378; J0612; J1650; J2405; J2785; J3480; J7040

== ENCOUNTER 2024-05-11 14:08 | Emergency (ER) | payer SELFPAY ==
[2024-05-11] MEDS ORDERED: ONDANSETRON 4 MG/2 ML VIAL ONE (15:22)
[2024-05-11] MEDS ORDERED: MORPHINE 4 MG/ML SYR ONE (15:23)
--- NOTE | 2024-05-11 15:27 | RAD REPORT ---
EXAM DESCRIPTION: RAD - Wrist Left 3 View - 05/11/2024 3:18 pm CLINICAL HISTORY: PAIN Pain COMPARISON: No comparisons FINDINGS: Impacted comminuted fracture of the distal radius with moderate displacement. No dislocati on is seen.
--- NOTE | 2024-05-11 15:40 | RAD REPORT ---
EXAM DESCRIPTION: CT - Head Brain Wo Cont - 05/11/2024 3:34 pm CLINICAL HISTORY: CONFUSED Fall, head injury COMPARISON: <Comparisons> TECHNIQUE: All CT scans are performed using dose optimization technique as appropriate and may inclu de automated exposure control or mA/KV adjustment according to patient size. FINDINGS: No intracranial hemorrhage, hydrocephalus or extra-axial fluid collection.No areas of brai n edema or evidence of midline shift. The paranasal sinuses and mastoids are clear. The calvarium is intact. IMPRESSION: No acute intracranial abnormality.
[2024-05-11] MEDS ORDERED: FENTANYL CITR 100 MCG/2 ML ONE (15:50)
[2024-05-11] MEDS ORDERED: propofoL 1,000 MG/100 ML VIAL IV ONE (15:50)
--- NOTE | 2024-05-11 17:03 | RAD REPORT ---
EXAM DESCRIPTION: RAD - Wrist Left 2 View - 05/11/2024 4:55 pm CLINICAL HISTORY: post reduction Pain COMPARISON: <Comparisons> FINDINGS: Mildly impacted fracture of the distal radius is seen with mild posterior displacement. No dislocation is evident. Splint material is in place.
--- NOTE | 2024-05-11 17:10 | EDPHYS ---
Physician Documentation [facility] Name: Antonio Valdes Age: 59 yrs Sex: Male : 1965 Arrival Date: 05/11/2024 Time: 14:08 Bed 17 Private MD: ED Physician Rufus Bhatti HPI: 05/11 14:37 This 59 yrs old Male presents to ER via Ambulatory with complaints of Arm sb4 Injury. 14:37 The patient or guardian complains of injury, pain, that is acute. The complaints affect sb4 the left wrist. 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 Onset: The symptoms/episode began/occurred just prior to arrival. Treatment prior to arrival includes: no previous treatment. Modifying factors: The symptoms are alleviated by remaining still, the symptoms are aggravated by movement. Associated signs and symptoms: Pertinent positives: decreased range of motion, deformity, pain, swelling, Pertinent negatives: numbness, tingling. The patient has not experienced similar symptoms in the past. Historical: - Allergies: 14:33 No Known Allergies; kc6 - Home Meds: 14:30 None [Active]; kc6 - PMHx: 14:30 None; kc6 - PSHx: 14:30 None; kc6 - Immunization history:: Adult Immunizations up to date. - Infectious Disease History:: Denies. - Social history:: Smoking status: Patient reports the use of cigarette tobacco products, denies chronic smoking, but will smoke occasionally. ROS: 14:37 Constitutional: Negative for fever, chills, and weight loss, sb4 14:37 MS/extremity: Positive for injury or acute deformity, pain, swelling, of the left wrist, 14:37 All other systems are negative, Exam: 14:37 Constitutional: This is a well developed, well nourished patient who is awake, alert, sb4 and in no acute distress. Head/Face: Normocephalic, atraumatic. Eyes: Extra-ocular motions intact. Periorbital areas with no swelling, redness, or edema. ENT: Mucous membranes moist. Skin: Warm, dry with normal turgor. Normal color with no rashes, no lesions, and no evidence of cellulitis. 14:37 Musculoskeletal/extremity: Joints: the left wrist displays deformity, limited range of motion, pain at rest, painful range of motion, swelling, tenderness, Vital Signs: 14:30 BP 144 / 77; Pulse 65; Resp 16 S; Temp 98(O); Pulse Ox 99% on R/A; Weight 79.38 kg (R); kc6 Height 5 ft. 7 in. (R); Pain 8/10; 15:30 BP 149 / 73; Pulse 60; Resp 16; Pulse Ox 98% on R/A; me1 16:30 BP 170 / 88; Pulse 60; Resp 16; Pulse Ox 100% on R/A; me1 17:36 BP 155 / 77; Pulse 60; Resp 17; Temp 98; Pulse Ox 100% ; ap3 14:30 Body Mass Index 27.41 (79.38 kg, 170.18 cm) kc6 14:30 Pain Scale: Adult kc6 Procedures: 16:33 Splinting: Splint applied to left wrist using Plaster sugar-tong splint. applied by rn myself. post reduction film - reveals improved alignment, Examined by me, post splint application: neurovascular intact, 2+ distal pulses palpable, brisk capillary refill noted, Patient tolerated well. Reduction: of the left wrist, using traction, manipulation, Immobilized with Plaster splint, sugar-tong. Patient tolerated well. Post reduction film - reveals improved alignment. Moderate sedation: Pre-procedure assessment: the patient has been NPO 4 hour(s) prior to arrival, ASA physical classification: I - healthy, no underlying organic disease, Airway assessment: able to hyperextend neck, able to maintain airway, can open mouth without difficulty, Monitoring during procedure: nuclear monitoring technician, continuous pulse oximetry, nurse at bedside at all times, Medications employed: Fentanyl, propofol, Post-procedure assessment: the patient is mildly sedated, Respiratory status: even and unlabored, a reversal agent was not used, Procedure began at 1606, ended at 1629. MDM: 14:16 Patient medically screened. sb4 17:06 Data reviewed: vital signs, nurses notes, radiologic studies, I have discussed the sb4 patient's presentation/case with the attending Emergency Department Physician; and as a result, I will discharge patient. Counseling: I had a detailed discussion with the patient and/or guardian regarding the historical points, exam findings, and any diagnostic results supporting the discharge/admit diagnosis, the presence of at least one elevated blood pressure reading (>120/80) during this emergency department visit, radiology results, the need for outpatient follow up, a orthopedic surgeon, to return to the emergency department if symptoms worsen or persist or if there are any questions or concerns that arise at home. 05/11 14:33 Order name: Wrist Left (3 View) XRAY; Complete Time: 15:27 sb4 05/11 15:14 Order name: Head Brain Wo Cont CT; Complete Time: 15:41 sb4 05/11 16:56 Order name: Wrist Left 2 View; Complete Time: 17:05 EDMS 05/11 14:33 Order name: IV Start; Complete Time: 15:18 sb4 05/11 14:57 Order name: NPO; Complete Time: 15:09 sb4 05/11 15:01 Order name: Misc. Order: prep for conscious sedation; Complete Time: 16:23 sb4 Administered Medications: 15:32 Drug: morphine IVP or IV 4 mg IVP once over 4 mins Route: IVP; Infused Over: 4 mins; ap3 Site: right antecubital; 16:32 Follow up: Response: No adverse reaction; Pain is decreased me1 15:32 Drug: Ondansetron IVP 4 mg IVP once; over 2 minutes Route: IVP; Site: right antecubital;ap3 16:32 Follow up: Response: No adverse reaction; Nausea is decreased me1 16:06 Drug: fentaNYL (PF) IVP 50 mcg IVP once Route: IVP; Site: right antecubital; me1 16:36 Follow up: Response: No adverse reaction; Pain is decreased me1 16:31 Drug: Propofol IVP 100 mg IVP once; Document RASS score. {Note: total of 100 mg given me1 in increments during conscious sedation. See flowsheet. .} Route: IVP; Site: right antecubital; 16:36 Follow up: Response: No adverse reaction; Pain is decreased me1 16:35 CANCELLED (Duplicate Order): fentanyl (pf)100 mcg IVP once rn Disposition: 17:56 Co-signature as Attending Physician, Rufus Bhatit MD I reviewed the patient's care rn provided by the Advanced Practice Provider and agree with the diagnosis and treatment plan. Disposition Summary: 05/11/24 17:09 Discharge Ordered Notes: Location: Home sb4 Problem: new sb4 Symptoms: have improved sb4 Condition: Stable sb4 Diagnosis - Distal radius fracture, left sb4 Followup: sb4 - With: Esteban Ferrer MD - When: 1 week - Reason: Recheck today's complaints, Re-evaluation by your physician Discharge Instructions: - Discharge Summary Sheet sb4 - Wrist Fracture Treated With Immobilization sb4 - Wrist Fracture Treated With ORIF sb4 Forms: - Prescription Opioid Use sb4 - Patient Portal Instructions sb4 - Leadership Thank You Letter sb4 Prescriptions: - acetaminophen-codeine 300-30 mg Oral tablet - take 1 tablet ORAL route every 6 hours; 15 tablet; Refills: 0, Product sb4 Selection Permitted - Ibuprofen 800 mg Oral Tablet - take 1 tablet ORAL route every 8 hours As needed take with food; 30 tablet; sb4 Refills: 0, Product Selection Permitted Signatures: Dispatcher [employer] EDMS Rufus Bhatti MD MD rn Prokisch, Amanda, RN RN ap3 Gricelda Hutchinson RN RN [email or web address] Arlet Oneill PA-C [employer]ak sb4 [address]ina [address] RN RN me1 Corrections: (The following items were deleted from the chart) 16:35 15:49 fentaNYL (PF) IVP 100 mcg IVP once ordered. rn rn 16:36 16:33 Moderate sedation: Pre-procedure assessment: the patient has been NPO 4 hour(s) rn prior to arrival, ASA physical classification: I - healthy, no underlying organic disease, Airway assessment: able to hyperextend neck, able to maintain airway, can open mouth without difficulty, Monitoring during procedure: nuclear monitoring technician, continuous pulse oximetry, nurse at bedside at all times, Medications employed: Fentanyl, propofol, Post-procedure assessment: the patient is mildly sedated, Respiratory status: even and unlabored, a reversal agent was not used, rn 16:56 16:12 Wrist Left 3 View+RAD.RAD.BRZ ordered. EDMS EDMS
--- NOTE | 2024-05-11 17:10 | ER ---
Nurse's Notes [facility] Name: Antonio Valdes Age: 59 yrs Sex: Male : 1965 Arrival Date: 05/11/2024 Time: 14:08 Bed 17 Private MD: Diagnosis: Distal radius fracture, left Presentation: 05/11 14:30 Chief complaint: Patient states: he was working outside when he fell onto his left kc6 wrist. swelling and deformity seen in triage. Coronavirus screen: At this time, the client does not indicate any symptoms associated with coronavirus-19. Ebola Screen: No symptoms or risks identified at this time. Initial Sepsis Screen: Does the patient meet any 2 criteria? No. Patient's initial sepsis screen is negative. Does the patient have a suspected source of infection? No. Patient's initial sepsis screen is negative. Risk Assessment: Do you want to hurt yourself or someone else? Patient reports no desire to harm self or others. Onset of symptoms was May 11, 2024. 14:30 Method Of Arrival: Ambulatory kc6 14:30 Acuity: ABRAHAM 2 kc6 Triage Assessment: 14:30 General: Appears in no apparent distress. comfortable, well groomed, well developed, kc6 Behavior is calm, cooperative, appropriate for age. Pain: Complains of pain in left hand Pain currently is 8 out of 10 on a pain scale. EENT: No signs and/or symptoms were reported regarding the EENT system. Neuro: Level of Consciousness is awake, alert, obeys commands, Oriented to person, place, time, situation, Appropriate for age. Cardiovascular: Capillary refill < 3 seconds. Respiratory: Airway is patent Trachea midline Respiratory effort is even, unlabored, Respiratory pattern is regular, symmetrical. GI: No signs and/or symptoms were reported involving the gastrointestinal system. : No signs and/or symptoms were reported regarding the genitourinary system. Derm: No signs and/or symptoms reported regarding the dermatologic system. Skin is intact, is healthy with good turgor, Skin is pink, warm \T\ dry. Musculoskeletal: Capillary refill < 3 seconds, Range of motion: limited in left wrist Bony deformity noted of left wrist Swelling present in left wrist. Injury Description: Deformity sustained to left wrist is protruding, was sustained 30-60 minutes ago. Historical: - Allergies: 14:33 No Known Allergies; kc6 - Home Meds: 14:30 None [Active]; kc6 - PMHx: 14:30 None; kc6 - PSHx: 14:30 None; kc6 - Immunization history:: Adult Immunizations up to date. - Infectious Disease History:: Denies. - Social history:: Smoking status: Patient reports the use of cigarette tobacco products, denies chronic smoking, but will smoke occasionally. Screenin:30 [facility] ED Fall Risk Assessment (Adult) History of falling in the last 3 months, me1 including since admission Yes- single mechanical fall (1 pt) Confusion or Disorientation No (0 pts) Intoxicated or Sedated No (0 pts) Impaired Gait No (0 pts) Mobility Assist Device Used No (0 pt) Altered Elimination No (0 pt) Score/Fall Risk Level 0 - 2 = Low Risk Maintained a safe environment, Provided non-skid footwear, Hourly rounding (assess needs \T\ fall precautionary measures) done. Abuse screen: Denies threats or abuse. Nutritional screening: No deficits noted. Tuberculosis screening: No symptoms or risk factors identified. Assessment: 14:30 General: Appears uncomfortable, well developed, well nourished, Behavior is calm, me1 cooperative, appropriate for age, Reports he was working outside when he fell onto his left wrist. swelling and deformity seen in triage. Pain: Complains of pain in left wrist Pain does not radiate. Pain currently is 7 out of 10 on a pain scale. Quality of pain is described as sharp, Pain began suddenly, Is continuous. Neuro: Level of Consciousness is awake, alert, obeys commands, Oriented to person, place, time, situation, Appropriate for age. Cardiovascular: Patient's skin is warm and dry. Respiratory: Airway is patent Respiratory effort is even, unlabored, Respiratory pattern is regular, symmetrical. GI: No signs and/or symptoms were reported involving the gastrointestinal system. : No signs and/or symptoms were reported regarding the genitourinary system. EENT: No signs and/or symptoms were reported regarding the EENT system. Derm: Skin is intact, is healthy with good turgor, Skin is pink, warm \T\ dry. Musculoskeletal: Bony deformity noted of left wrist Reports pain in left wrist and left hand he was working outside when he fell onto his left wrist. swelling and deformity seen in triage. Injury Description: he was working outside when he fell onto his left wrist. swelling and deformity seen in triage. Vital Signs: 14:30 BP 144 / 77; Pulse 65; Resp 16 S; Temp 98(O); Pulse Ox 99% on R/A; Weight 79.38 kg (R); kc6 Height 5 ft. 7 in. (R); Pain 8/10; 15:30 BP 149 / 73; Pulse 60; Resp 16; Pulse Ox 98% on R/A; me1 16:30 BP 170 / 88; Pulse 60; Resp 16; Pulse Ox 100% on R/A; me1 17:36 BP 155 / 77; Pulse 60; Resp 17; Temp 98; Pulse Ox 100% ; ap3 14:30 Body Mass Index 27.41 (79.38 kg, 170.18 cm) [facility] 14:30 Pain Scale: Adult [facility] ED Course: 14:09 Patient arrived in ED. ra3 14:12 Arlet Oneill PA-C [facility]. sb4 14:12 Pilo Marks MD is Attending Physician. sb4 14:30 Provided Education on: POC. Verbalized understanding. . me1 14:30 No provider procedures requiring assistance completed. me1 14:33 Triage completed. [facility] 14:33 Arm band placed on. [facility] 14:53 Rufus Bhatti MD is Attending Physician. sb4 15:[address], ALEXEY is Primary Nurse. me1 15:18 Client placed on continuous cardiac and pulse oximetry monitoring. NIBP monitoring ap3 applied. pad machine offbearer on. Pulse ox on. NIBP on. 15:18 Patient has correct armband on for positive identification. Placed in gown. Bed in low ap3 position. Call light in reach. Side rails up X2. 15:18 Inserted saline lock: 20 gauge in right antecubital area, using aseptic technique. ap3 Flushed with 10 mL NS. 15:20 Wrist Left (3 View) XRAY In Process Unspecified. EDMS 15:36 Head Brain Wo Cont CT In Process Unspecified. EDMS 16:56 Wrist Left 2 View In Process Unspecified. EDMS 17:06 Esteban Ferrer MD is Referral Physician. sb4 17:35 IV discontinued, intact, bleeding controlled, No redness/swelling at site. Pressure ap3 dressing applied. Administered Medications: 15:32 Drug: morphine IVP or IV 4 mg IVP once over 4 mins Route: IVP; Infused Over: 4 mins; ap3 Site: right antecubital; 16:32 Follow up: Response: No adverse reaction; Pain is decreased me1 15:32 Drug: Ondansetron IVP 4 mg IVP once; over 2 minutes Route: IVP; Site: right antecubital;ap3 16:32 Follow up: Response: No adverse reaction; Nausea is decreased me1 16:06 Drug: fentaNYL (PF) IVP 50 mcg IVP once Route: IVP; Site: right antecubital; me1 16:36 Follow up: Response: No adverse reaction; Pain is decreased me1 16:31 Drug: Propofol IVP 100 mg IVP once; Document RASS score. {Note: total of 100 mg given me1 in increments during conscious sedation. See flowsheet. .} Route: IVP; Site: right antecubital; 16:36 Follow up: Response: No adverse reaction; Pain is decreased me1 16:35 CANCELLED (Duplicate Order): fentanyl (pf)100 mcg IVP once photo intern: 14:30 VIS not applicable for this client. az1 Outcome: 17:09 Discharge ordered by . sb4 17:35 Discharged to home ambulatory, ap3 17:35 Condition: good 17:35 Discharge instructions given to patient, Instructed on discharge instructions, follow up and referral plans. medication usage, Demonstrated understanding of instructions, follow-up care, medications, 17:46 Patient left the ED. az1 Signatures: Dispatcher [employer] EDKarla Dawson RN RN ap3 Gricelda Hutchinson RN RN kc6 Arlet Oneill, PA-Hunter PA-Hunter sb4 Clementina Street RN RN me1 Karime Moreno ra3 Rufus Bhatti MD contractor [employer]: (The following items were deleted from the chart) 15:10 14:30 Pulse 65bpm; Resp 16bpm; Spontaneous; Pulse Ox 99% RA; Temp 98F Oral; 79.38 kg kc6 Reported; Height 5 ft. 7 in. Reported; BMI: 27.4; Pain 8/10, Adult; kc6 17:46 14:30 Chief complaint: Patient states: he was working outside when he fell onto his me1 left wrist. swelling and deformity seen in triage kc6
[2024-05-11 17:51] VITALS: TEMP 98
[2024-05-11 17:52] VITALS: BP 155/77; O2SAT 100
== END 2024-05-11 17:46 | disposition home or self-care (01) ==
LOC: ER 14:08
DX: S52.502A Unspecified fracture of the lower end of left radius, initial encounter for closed fracture (principal)
CPT/HCPCS: 70450; 96374; 96375; 99285; J2405; J2704; J3010